=== PATIENT | female | born 1960 | race Caucasian/White ===

== ENCOUNTER 2023-06-08 15:28 | Day surgery (SDC) | payer BC, SELFPAY ==
[2023-06-08] VITALS (10 sets, daily range): BP systolic 99–165; BP diastolic 57–103
--- NOTE | 2023-06-08 11:18 | ED.GENMED ---
History of Present Illness
General
Chief Complaint: Abdominal Pain
Source: patient
Time Seen by Provider: 06/08/23 11:00
Travel History
Have you had any contact with someone who has COVID-19?: No
Do you have any symptoms of coronavirus? Fever > 100 degrees, chills, cough, shortness of breath, sore throat, loss of taste or smell, muscle aches, or headache?: No
History of Present Illness
History of Present Illness:
63-year-old female with past medical history of hypertension and previous brain aneurysm presenting to the emergency department for evaluation at the request of general surgery's office after she had an outpatient ultrasound done yesterday which
showed concerns for an incarcerated or strangulated umbilical hernia. Patient states that she has been experiencing intermittent abdominal pain over the last few months, she would take Tums and often times lay down for about 30 minutes with this
symptoms resolving following this, but over the last month started increasing more pain and noticed a protrusion from her umbilicus which is what prompted the imaging study. Patient states over the last few days she has noticed that the protrusion
has gotten harder to palpation and more painful. She denies any vomiting, bowel changes, decreased p.o. intake or any other concerns.
Past History
Past History
ED Past Medical History: HTN and Other (Subarachnoid hemorrhage August 2011)
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
Social History
Tobacco: Smoker
Alcohol: Occasional
Drug: None
Personal:
Living: with family
Family History
Family History: Negative Diabetes, Hypertension, Early CAD, Asthma or Cancer
Review of Systems
Review of Systems
All Other Systems: ROS reviewed and negative except as documented in HPI and ROS
Phy Exam
Physical Exam
Physical Exam:
GENERAL: Alert , in no apparent distress but she is upset and tearful
EYE: clear conjunctiva b/l
HEAD: NCAT
ENT: o/p clr, mmm.
CARDIAC: Regular rate and rhythm .
LUNGS: Clear breath sounds bilaterally, no acute respiratory distress, no wheezes/rales/rhonchi
ABDOMEN: Soft, umbilicus does have protrusion that is firm to palpation with some slight overlying erythema with tenderness to palpation. Unable to reduce hernia, no r/g, no cvat
NEUROLOGICAL: Alert and oriented
SKIN: Warm and dry, skin intact.
MUSCULOSKELETAL: No edema, well perfused.
PSYCH: Normal and appropriate interaction.
Scores
Heart Failure Risk
Heart Failure Risk Score: Not Applicable
Heart Score for Chest Pain Patients
STEMI patient?: Not applicable
Withdrawal Assessment of Alcohol
Withdrawal Assessment Completed?: Not applicable
Course
Orders/Labs/Results
Orders:
Orders
06/08/23 Lunch
NPO
Allow oral meds: Yes
Allow clear liquids: No
06/08/23 11:14
Electrocardiogram (*1) Urgent
Reason for Study: PreOp
EKG- Treatment ONCE
06/08/23 11:25
Type+Screen Urgent
Basic Metabolic Panel Urgent
Complete Blood Count/With Diff Urgent
Lactic Acid Q4H
Comment: CANCEL 2nd LACTIC ACID IF 1st LACTIC ACID IS LESS THAN 2
PTT Urgent
Prothrombin Time Urgent
06/08/23 11:57
CeFAZolin 2 GRAM [Ancef] 2 grams in 10 ml IV PRE PROCEDURE
HYDROmorphone [Dilaudid] 0.25 mg IV Q2HPRN PRN
HYDROmorphone [Dilaudid] 0.5 mg IV Q2HPRN PRN
Ondansetron Injectable [Zofran] 4 mg IV Q6HPRN PRN
06/08/23 12:00
0.9% Sodium Chloride 1000 ml [Nss] 1,000 ml IV 120 mls/hr
06/08/23 15:15
Lactic Acid Q4H
Comment: CANCEL 2nd LACTIC ACID IF 1st LACTIC ACID IS LESS THAN 2
Abnormal Lab Results
06/08/23
11:25
Chloride 108 H mmol/L
(98-107)
Glucose 104 H mg/dl
(70-99)
06/08/23 11:25
06/08/23 11:25
Vital Signs
Initial and Last Documented VS:
Initial Vital Signs
Temp Pulse Resp BP Pulse Ox
98.7 F 102 18 165/103 97
06/08/23 10:55 06/08/23 10:55 06/08/23 10:55 06/08/23 10:55 06/08/23 10:55
Last Documented Vital Signs
Temp Pulse Resp BP Pulse Ox
98.7 F 102 18 165/103 97
06/08/23 10:55 06/08/23 10:55 06/08/23 10:55 06/08/23 10:55 06/08/23 10:55
MDM/Problems Addressed
Differential Diagnosis Includes:
Strangulated versus incarcerated umbilical hernia, uncomplicated umbilical hernia, appendicitis, GERD/gastritis
MDM/Problems Addressed:
63-year-old female presenting the emergency department for evaluation at the request of the surgery team. She had an ultrasound done yesterday which showed concerns for an incarcerated or strangulated hernia. Exam seems to be consistent with this.
Will check labs and discussed case with surgery team to come up with plan for further management. Patient is declining anything for pain or symptoms at this present time.
*Pulse Oximetry
Patient hypoxic: no
*Critical Care Note
Total Time (30-74mins, 75-104mins- exclusive of procedures): Not Applicable
Data Reviewed
Review of Other/Old Records Reveals: Records and Radiology Studies
Source: patient and records
Patient Management
Discussion with other providers: Slimer
Escalation/DeEscalation of care consider admission/obs:
Patient seen by general surgery. They are placing the patient on the OR schedule for later this afternoon. Patient advised to remain n.p.o. She continues to decline anything for pain.
ED Attending Note
-
Portions of this chart may have been created with voice recognition software.� Occasional wrong word or��sound alike� substitutions may have occurred due to the inherent limitations of voice recognition software.
Discharge Plan
Departure
Patient Disposition: OR
Date of Disposition: 06/08/23
Time of Disposition: 11:56
Presentation/result/management discussed w/ accepting MD/DO: Troy
Discharge Problem:
Strangulated umbilical hernia
Prescriptions:
No Action
amlodipine 10 mg Tablet
10 mg PO DAILY
Glucosamine Chondroitin
1 tab PO DAILY
Referrals:
Megan Pierce PA-C [Family Provider] -
Interventions
Interventions:
*Risk Screen - Suicide Last Done: 06/08/23 10:58
*General Assessment Last Done: 06/08/23 10:58
*Neglect/Abuse Screening Last Done: 06/08/23 10:58
GB-Bfsvkq-Wbeovbdriq Assessment Last Done: 06/08/23 12:15
[2023-06-08 11:42] LABS: % Basophils 0.6 % (0-2); % Eosinophils 2.3 % (0-6); % Immature Granulocytes 0.4 % (0-0.5); % Lymphocytes 32.8 % (20.5-51.1); % Monocytes 8.2 % (1.7-9.3); % Neutrophils 55.7 % (42.2-75.2); Absolute Eosinophils 0.1 10^3/uL (0-0.7); Absolute Lymphocytes 1.7 10^3/uL (1.2-3.4); Absolute Monocytes 0.4 10^3/uL (0.1-0.6); Absolute Neutrophils 2.9 10^3/uL (1.4-6.5); Hematocrit 38.9 % (37.0-47.0); Hemoglobin 13.7 g/dL (12.0-16.0); Mean Corp Hgb Conc. 35.2 g/dL (33.0-37.0); Mean Corpuscular Hgb 30.2 pg (27.0-31.0); Mean Corpuscular Volume 85.9 fL (81.0-99.0); Mean Platelet Volume 9.7 fL (7.4-10.4); Nucleated Red Blood Cells % 0 %; Platelet Count 255 10^3/uL (130-400); Red Blood Cell Count 4.53 10^6/uL (4.20-5.40); Red Cell Dist. Width 12.9 % (11.5-14.5); White Blood Cell Count 5.2 10^3/uL (4.8-10.8)
--- NOTE | 2023-06-08 11:49 | HP.FOC2 ---
Focused History & Physical
Chief Complaint
HPI:
Chief Complaint: Umbilical swelling and abdominal pain
HPI / Indication for Planned Procedure: Patient is a 63-year-old female who has had a few month history of intermittent swelling and discomfort in the region of her umbilicus. It acutely deteriorated this past weekend with rather sharp and constant
pain for a bit and then it subsequently mildly improved. She saw her primary on Monday and was referred for subsequent ultrasound imaging identifying a umbilical hernia with surrounding edema and fluid as well as tissue contents within it
suggestive of strangulation. Patient presented to the emergency department for evaluation today.
She has had no nausea. No vomiting. Her appetite has been slightly reduced. Her bowels have been moving regularly. No abdominal distention. No generalized abdominal pain. No fevers chills or sweats.
Past abdominal surgical history only notable for x 2
Relevant Past Medical History: Other (Anxiety, hypertension, history of cerebral aneurysm status post clipping)
Relevant Social History: Negative
Relevant Family History: Negative
Relevant Past Surgical History: Positive for ( x 2, cerebral aneurysm clipping, orthopedic surgery lower extremity)
Review of Systems
Review of Pertinent Systems: All Systems Negative
Medication
See Medication form for detailed medications: Yes
Medication List (including Herbals & OTC):
acetaminophen 300 mg-codeine 30 mg tablet (Tylenol-Codeine #3) 1 ea PO Q6HPRN PRN pain 09/15/11
amlodipine 10 mg tablet 10 mg PO DAILY 09/15/11
diazepam 5 mg tablet 5 mg PO TIDPRN PRN as needed 09/15/11
levetiracetam 500 mg tablet 500 mg PO BID 09/15/11
nicotine 21 mg/24 hr daily transdermal patch (Nicoderm CQ) 21 mg S DAILY 09/15/11
nimodipine 30 mg capsule 2 cap PO Q4H 09/15/11
tramadol 50 mg tablet 50 mg PO Q6HPRN PRN pain 09/15/11
meclizine 25 mg tablet 25 mg PO Q8HPRN PRN dizziness #14 tabs 07/07/12
Medications Reviewed: Yes
Allergies and Reactions
Patient has Allergies: No
Noted Allergies and Reactions:
Allergy/AdvReac Type Severity Reaction Status Date / Time
NKA - No Known Allergies Allergy Unknown Uncoded 06/08/23 10:54
Pertinent Physical Exam
All Other Systems: Negative
Head/Neck: Normal
Lungs: Normal
Heart: Normal
Abdomen: Other (Soft, nondistended, tenderness palpation localizing to the umbilicus with slight erythema. Firm, incarcerated umbilical hernia, no rebound rigidity or guarding)
Extremities: Normal
Neurological: Normal
Diagnosis / Assessment
Assessment: 63-year-old female presenting with acutely incarcerated umbilical hernia with probable strangulation but no obstruction. Based on symptomatology and review of ultrasound imaging highly suspect incarcerated and strangulated omentum and
no bowel contents.
Discussed with patient and her at bedside. We discussed indications for operative correction at this time which they are in agreement with. Open umbilical hernia repair, possible mesh, possible bowel resection (although not anticipated)
was reviewed in detail clean the operative technique, potential operative findings and the management, benefits and risk such as but not limited to bleeding, infectious or wound related complications, iatrogenic injury to surrounding viscera,
potential utilization of mesh pending operative findings but it would be avoided if felt to be of higher infectious risks. We discussed typical postoperative recovery and subsequent surgical follow-up. We discussed the future risk for hernia
recurrence.
Any of the patient's or her 's questions were addressed and informed consent was obtained.
Plan / Procedure
Await availability of OR room today for procedure.
Routine supportive care while in the ER, probable dispo to home after procedure through PACU versus possible overnight stay
IV fluids, analgesics and antiemetics if needed awaiting OR
Ancef 2 g IV on-call to the OR
Open repair incarcerated/strangulated umbilical hernia, possible mesh, possible bowel resection
Anesthesia/Sedation to be done by Anesthesia Provider: Yes
[2023-06-08 11:54] LABS: INR 1.03; PT 13.5 Sec (11.4-14.6)
[2023-06-08 11:55] LABS: APTT 28.8 Sec (23.4-35.0)
[2023-06-08 11:56] LABS: Blood Urea Nitrogen 16 mg/dl (7-17); Calcium 9.3 mg/dl (8.4-10.2); Carbon Dioxide 25 mmol/L (22-30); Chloride 108 mmol/L (98-107); Glucose 104 mg/dl (70-99); Lactic Acid 0.9 mmol/L (0.7-2.0); Potassium 4.5 mmol/L (3.5-5.1); Sodium 139 mmol/L (135-145); eGFR > 60.00
--- NOTE | 2023-06-08 13:45 | EDRN ---
Awaiting OR: Last solid food yesterday, coffee this am around 9, no prior problems with anesthesia, former smoker. SONALI.
[2023-06-08] MEDS: NSS 1000 IV (14:03)
--- NOTE | 2023-06-08 14:54 | EDRN ---
Pharmacy notifed pt to OR, ancef needs to be sent to OR.
--- NOTE | 2023-06-08 15:46 | W.SUR.PREOP ---
Pre-Operative Surgical Note
-
I have examined this patient prior to the performance of the scheduled procedure.
The patient's condition is unchanged from the time of the current History and
Physical and the patient is able to undergo the scheduled procedure.
--- NOTE | 2023-06-08 16:54 | W.IMMPOSTOP ---
Addendum entered and electronically signed by Narciso Simmons MD 06/08/23 17:01:
#[id number]
Original Note:
Surgical Immed Post Op Note
-
Primary Surgeon: Troy
Assisting Surgeon: Lorenza Santos
Pre-op Diagnosis: Incarcerated umbilical hernia
Post-op Diagnosis: Incarcerated/strangulated umbilical hernia; 1 cm
Procedure Performed: Open primary repair incarcerated/strangulated umbilical hernia
Anesthesia Type: GETA +0.25% Marcaine
Specimen / Cultures: None
Estimated Blood Loss: 6 mL
Complications: None immediate
Operative Findings: Incarcerated umbilical hernia containing portions of strangulated preperitoneal fat. No intra-abdominal contents noted. Fascial edges cleared and freshened. Strangulated preperitoneal fat excised and discarded. Hernia defect
1 cm. No additional hernias in the vicinity noted. Primary repair with 0 PDS in interrupted fashion.
Plan: DC home postop. Updated patient's in surgical waiting area.
[2023-06-08] MEDS: DILAUDID 0.25 MG IV (17:21)
[2023-06-08] MEDS: ZOFRAN 4 MG IV (17:47)
== END 2023-06-08 18:52 | disposition home or self-care (01) ==
LOC: PACU 15:28
PROVIDERS: Physician Assistant Medical; ATTENDING PHYSICIAN Surgery; EMERGENCY PHYSICIAN Emergency Medicine; FAMILY PHYSICIAN Physician Assistant Medical
DX: K42.0 Umbilical hernia with obstruction, without gangrene (principal)
CPT/HCPCS: 49592; 80048; 83605; 85025; 85610; 85730; 86850; 86900; 86901; 93005; 99285

== ENCOUNTER → 2023-09-25 19:42 | Outpatient (REF) | payer BC, SELFPAY | LOC: WDC 19:42 | PROVIDERS: ATTENDING PHYSICIAN Physician Assistant Medical | DX: Z12.31 Encounter for screening mammogram for malignant neoplasm of breast (principal) | CPT/HCPCS: 77063; 77067 ==

== ENCOUNTER → 2024-09-25 19:37 | Outpatient (REF) | payer OTHER, SELFPAY | LOC: WDC 19:37 | PROVIDERS: ATTENDING PHYSICIAN Obstetrics & Gynecology; FAMILY PHYSICIAN Physician Assistant Medical | DX: Z12.31 Encounter for screening mammogram for malignant neoplasm of breast (principal) | CPT/HCPCS: 77063; 77067 ==